=== PATIENT | female | born 1960 | race Caucasian/White ===

== ENCOUNTER 2017-10-19 12:56 | Emergency (ER) | payer OTHER ==
[~2017-10-19] VITALS: Ht 160 cm; Wt 70.3 kg
[~2017-10-19 12:56] MED LIST: ASPIRIN CHILDRE81 MG; CELECOXIB200 M1 PO; CITALOPRAM HYDR40 MG PO; DARVOCET N 1001 TAB PO; ETODOLAC400 MG PO; GABAPENTIN300 MG PO; GABAPENTIN800 MG PO; HYDROCODONE BIT1 T11 PO; KEFLEX500 MG PO; MOTRIN800 MG PO; NAPROSYN500 MG PO; NORCO 5-325 TA1 EACH PO; PREDNISONE10 MG PO; PRILOSEC20 MG PO; TRAMADOL HCL50 MG PO; VENTOLIN0.09 MG/AC INH; VICODIN 5/500 505 MG PO; VICODIN 500 MG-1 TAB PO; VISTARIL50 MG PO
[2017-10-19] MEDS ORDERED: NORCO 5-325 TA1 EACH PO (14:00)
[2017-10-19] MEDS ORDERED: KEFLEX500 M1 PO (14:00)
== END 2017-10-19 14:13 | disposition home or self-care (01) ==
LOC: ED 12:56
DX: S92.421A Displaced fracture of distal phalanx of right great toe, initial encounter for closed fracture (principal); R03.0 Elevated blood-pressure reading, without diagnosis of hypertension; Z98.890 Other specified postprocedural states; Z88.5 Allergy status to narcotic agent; Z79.899 Other long term (current) drug therapy; W20.8XXA Other cause of strike by thrown, projected or falling object, initial encounter; Y93.89 Activity, other specified; Y92.89 Other specified places as the place of occurrence of the external cause; Y99.9 Unspecified external cause status

== ENCOUNTER → 2020-01-26 | Outpatient (CLI) | payer OTHER ==
[~2020-01-26] MED LIST changes: +KEFLEX500 M1 PO
== END | disposition home or self-care (01) ==
LOC: MAMMO 10:48
DX: Z12.31 Encounter for screening mammogram for malignant neoplasm of breast (principal)

== ENCOUNTER → 2022-01-25 | Outpatient (CLI) | payer OTHER | END | disposition home or self-care (01) | LOC: RAD 16:47 | PROVIDERS: ATTEND Nurse Practitioner Family | DX: M47.816 Spondylosis without myelopathy or radiculopathy, lumbar region (principal); M48.061 Spinal stenosis, lumbar region without neurogenic claudication; M25.78 Osteophyte, vertebrae; M25.552 Pain in left hip ==

== ENCOUNTER 2023-02-01 10:11 | Emergency (ER) | payer OTHER ==
[~2023-02-01] VITALS: Ht 162.5 cm; Wt 57.6 kg
[~2023-02-01 10:11] MED LIST changes: +ALDACTONE25 MG PO; +ALLERGY RELIE15.8 ML NAS; +ALPRAZOLAM0.25 M2 PO; +ASPIRIN ADULT L81 M2 PO; +BENGAY T; +DULOXETINE HCL60 MG PO; +FLUTICASONE PROP 50; +FLUTICASONE-SAL12 GM INH; +IBU800 MG PO; +JARDIANCE10 MG PO; +KLOR-CON M2020 ME1 PO; +LISINOPRIL2.5 MG PO; +LOPRESSOR25 MG PO; +METOPROLOL SUCC25 M2 PO; +OMEPRAZOLE MAGN20 MG PO; +PROVENTIL HFA6.7 GM INH; +RINVOQ ER15 MG PO; +SYMB160 INH; +VITAMIN D3125 MCG PO; +XARE20MG PO; +ZITHROMAX TRI-500 M1 PO
== END 2023-02-01 11:17 | disposition home or self-care (01) ==
LOC: ED 10:11
DX: I48.92 Unspecified atrial flutter (principal); K21.9 Gastro-esophageal reflux disease without esophagitis; I11.0 Hypertensive heart disease with heart failure; I50.9 Heart failure, unspecified; E78.00 Pure hypercholesterolemia, unspecified; Z88.5 Allergy status to narcotic agent; Z98.890 Other specified postprocedural states; F17.210 Nicotine dependence, cigarettes, uncomplicated

== ENCOUNTER → 2023-03-15 | Outpatient (CLI) | payer OTHER | END | disposition home or self-care (01) | LOC: CT 03-08 09:00 | PROVIDERS: ATTEND Nurse Practitioner | DX: K57.30 Diverticulosis of large intestine without perforation or abscess without bleeding (principal); K76.0 Fatty (change of) liver, not elsewhere classified; K76.89 Other specified diseases of liver; J90 Pleural effusion, not elsewhere classified; I51.7 Cardiomegaly; R18.8 Other ascites ==

== ENCOUNTER → 2023-04-02 | Outpatient (CLI) | payer OTHER | LOC: WOUNDCARE 03-30 00:31 | PROVIDERS: ATTEND Nurse Practitioner Family | DX: S81.802A Unspecified open wound, left lower leg, initial encounter (principal); S81.801D Unspecified open wound, right lower leg, subsequent encounter; S81.812D Laceration without foreign body, left lower leg, subsequent encounter; I73.9 Peripheral vascular disease, unspecified; I10 Essential (primary) hypertension; D64.9 Anemia, unspecified; I48.91 Unspecified atrial fibrillation; H54.8 Legal blindness, as defined in USA; K70.31 Alcoholic cirrhosis of liver with ascites; K21.9 Gastro-esophageal reflux disease without esophagitis; F17.210 Nicotine dependence, cigarettes, uncomplicated; F32.A Depression, unspecified; F41.9 Anxiety disorder, unspecified; Z71.6 Tobacco abuse counseling; X58.XXXD Exposure to other specified factors, subsequent encounter; X58.XXXA Exposure to other specified factors, initial encounter; Y93.89 Activity, other specified; Y92.89 Other specified places as the place of occurrence of the external cause; Y99.8 Other external cause status ==

== ENCOUNTER → 2023-04-05 | Outpatient (CLI) | payer OTHER | END | disposition home or self-care (01) | LOC: US 12:55 | PROVIDERS: ATTEND Nurse Practitioner Family | DX: I73.9 Peripheral vascular disease, unspecified (principal); L97.922 Non-pressure chronic ulcer of unspecified part of left lower leg with fat layer exposed ==

== ENCOUNTER → 2023-04-09 | Outpatient (CLI) | payer OTHER ==
[~2023-04-09] MED LIST changes: +LASIX20 MG PO
== END | disposition home or self-care (01) ==
LOC: WOUNDCARE 04:18
PROVIDERS: ATTEND Nurse Practitioner Family
DX: S81.802D Unspecified open wound, left lower leg, subsequent encounter (principal); S81.801D Unspecified open wound, right lower leg, subsequent encounter; L97.822 Non-pressure chronic ulcer of other part of left lower leg with fat layer exposed; I73.9 Peripheral vascular disease, unspecified; I10 Essential (primary) hypertension; D64.9 Anemia, unspecified; K70.31 Alcoholic cirrhosis of liver with ascites; F32.A Depression, unspecified; F41.9 Anxiety disorder, unspecified; I48.91 Unspecified atrial fibrillation; K21.9 Gastro-esophageal reflux disease without esophagitis; H54.8 Legal blindness, as defined in USA; F17.210 Nicotine dependence, cigarettes, uncomplicated; Z71.6 Tobacco abuse counseling; X58.XXXD Exposure to other specified factors, subsequent encounter

== ENCOUNTER 2023-04-16 11:41 | Emergency (ER) | payer OTHER ==
[~2023-04-16] VITALS: Ht 162.5 cm; Wt 59.0 kg
[~2023-04-16 11:41] MED LIST changes: -LASIX20 MG PO
[2023-04-16 13:06] LABS: BASO % 0.2 % (0.0-1.0); EOS % 0.3 % (1.0-4.0); HEMATOCRIT 27.4 % (37.0-47.0); LYMPH # 0.8 10*3/uL (1.3-4.4); LYMPH % 6.2 % (27.0-41.0); MEAN CELL VOLUME 92.6 fl (81.0-99.0); MEAN CORPUSCULAR HGB CONC 30.3 g/dl (33.0-37.0); MEAN PLATELET VOLUME 9.2 fl (9.6-12.3); MONO # 0.9 10*3/uL (0.1-1.0); NEUT # 10.4 10*3/uL (2.3-7.9); NEUT % 85.8 % (47.0-73.0); NUCLEATED RED BLOOD CELL 0.2 % (0.0-0.0); PLATELET COUNT AUTOMATED 441 10*3/uL (130-400); RED BLOOD COUNT 2.96 10*6/uL (4.10-5.10); RED CELL DISTRI WIDTH 20.3 % (0-14.5); WHITE BLOOD COUNT 12.1 10*3/uL (4.8-10.8)
[2023-04-16 13:37] LABS: ALKALINE PHOSPHATASE 75 U/L (46-116); BUN 18 mg/dl (9-23); CHLORIDE 107 mmol/L (98-107); POTASSIUM 3.7 mmol/L (3.4-5.1); SGPT/ALT 12 U/L (5-49); TOTAL PROTEIN 6.8 gm/dL (6.0-8.0)
[2023-04-16] MEDS ORDERED: LASIX20 MG PO (13:46)
== END 2023-04-16 14:21 | disposition home or self-care (01) ==
LOC: ED 11:41
PROVIDERS: Physician Assistant Medical
DX: I50.9 Heart failure, unspecified (principal); I48.91 Unspecified atrial fibrillation; J44.9 Chronic obstructive pulmonary disease, unspecified; Z88.5 Allergy status to narcotic agent; Z98.890 Other specified postprocedural states; F17.210 Nicotine dependence, cigarettes, uncomplicated; F12.90 Cannabis use, unspecified, uncomplicated; F15.90 Other stimulant use, unspecified, uncomplicated

== ENCOUNTER → 2023-04-16 | Outpatient (CLI) | payer OTHER | END | disposition home or self-care (01) | LOC: WOUNDCARE 01:28 | PROVIDERS: ATTEND Nurse Practitioner Family | DX: S81.802D Unspecified open wound, left lower leg, subsequent encounter (principal); S81.801D Unspecified open wound, right lower leg, subsequent encounter; L97.822 Non-pressure chronic ulcer of other part of left lower leg with fat layer exposed; H54.8 Legal blindness, as defined in USA; I73.9 Peripheral vascular disease, unspecified; D64.9 Anemia, unspecified; I11.0 Hypertensive heart disease with heart failure; I50.9 Heart failure, unspecified; K70.31 Alcoholic cirrhosis of liver with ascites; K21.9 Gastro-esophageal reflux disease without esophagitis; I48.91 Unspecified atrial fibrillation; F41.9 Anxiety disorder, unspecified; F17.210 Nicotine dependence, cigarettes, uncomplicated; F32.A Depression, unspecified; Z71.6 Tobacco abuse counseling; X58.XXXD Exposure to other specified factors, subsequent encounter ==

== ENCOUNTER → 2023-04-25 | Outpatient (CLI) | payer OTHER ==
[~2023-04-25] MED LIST changes: +LASIX20 MG PO
== END | disposition home or self-care (01) ==
LOC: WOUNDCARE 01:15
PROVIDERS: ATTEND Nurse Practitioner Family
DX: S81.802D Unspecified open wound, left lower leg, subsequent encounter (principal); S81.801D Unspecified open wound, right lower leg, subsequent encounter; L97.822 Non-pressure chronic ulcer of other part of left lower leg with fat layer exposed; H54.8 Legal blindness, as defined in USA; I73.9 Peripheral vascular disease, unspecified; D64.9 Anemia, unspecified; I48.91 Unspecified atrial fibrillation; I11.0 Hypertensive heart disease with heart failure; I50.9 Heart failure, unspecified; K21.9 Gastro-esophageal reflux disease without esophagitis; K70.31 Alcoholic cirrhosis of liver with ascites; F32.A Depression, unspecified; F41.9 Anxiety disorder, unspecified; F17.210 Nicotine dependence, cigarettes, uncomplicated; Z71.6 Tobacco abuse counseling; X58.XXXD Exposure to other specified factors, subsequent encounter

== ENCOUNTER → 2023-04-30 | Outpatient (CLI) | payer OTHER | END | disposition home or self-care (01) | LOC: WOUNDCARE 02:02 | PROVIDERS: ATTEND Nurse Practitioner Family | DX: S81.802D Unspecified open wound, left lower leg, subsequent encounter (principal); S81.801D Unspecified open wound, right lower leg, subsequent encounter; L97.822 Non-pressure chronic ulcer of other part of left lower leg with fat layer exposed; H54.8 Legal blindness, as defined in USA; I73.9 Peripheral vascular disease, unspecified; D64.9 Anemia, unspecified; I11.0 Hypertensive heart disease with heart failure; I50.9 Heart failure, unspecified; I48.91 Unspecified atrial fibrillation; K21.9 Gastro-esophageal reflux disease without esophagitis; K70.31 Alcoholic cirrhosis of liver with ascites; F32.A Depression, unspecified; F41.9 Anxiety disorder, unspecified; F17.210 Nicotine dependence, cigarettes, uncomplicated; Z71.6 Tobacco abuse counseling; X58.XXXD Exposure to other specified factors, subsequent encounter ==

== ENCOUNTER → 2023-05-07 | Outpatient (CLI) | payer OTHER ==
[2023-05-07 08:13] LABS: BASO % 0.4 % (0.0-1.0); EOS # 0.1 10*3/uL (0.0-0.4); EOS % 1.4 % (1.0-4.0); HEMATOCRIT 24.9 % (37.0-47.0); LYMPH # 1.1 10*3/uL (1.3-4.4); LYMPH % 19.7 % (27.0-41.0); MEAN CELL VOLUME 90.2 fl (81.0-99.0); MEAN CORPUSCULAR HGB 27.2 pg (27.0-31.0); MEAN CORPUSCULAR HGB CONC 30.1 g/dl (33.0-37.0); MEAN PLATELET VOLUME 8.4 fl (9.6-12.3); MONO # 0.7 10*3/uL (0.1-1.0); MONO % 11.4 % (3.0-9.0); NEUT # 3.8 10*3/uL (2.3-7.9); NEUT % 66.7 % (47.0-73.0); PLATELET COUNT AUTOMATED 485 10*3/uL (130-400); RED BLOOD COUNT 2.76 10*6/uL (4.10-5.10); RED CELL DISTRI WIDTH 18.9 % (0-14.5); WHITE BLOOD COUNT 5.7 10*3/uL (4.8-10.8)
[2023-05-07 08:24] LABS: ACT PARTIAL THROMBO TIME 27.4 SECONDS (20.0-32.1)
[2023-05-07 08:42] LABS: POTASSIUM 3.7 mmol/L (3.4-5.1); TOTAL PROTEIN 6.7 gm/dL (6.0-8.0)
[2023-05-08 05:05] LABS: ALPHA-1-ANTITRYPSIN, SERUM 169 mg/dL (101-187)
[2023-05-08 06:06] LABS: HEPATITIS B SURFACE AB Non Reactive (.); HEPATITIS B SURFACE AG Negative (Negative)
[2023-05-08 14:06] LABS: ANTI-SMOOTH MUSCLE ANTIBODY 11 Units (0-19); t-TRANSGLUTAMINASE (tTG) IGA <2 U/mL (0-3); t-TRANSGLUTAMINASE (tTG) IgG <2 U/mL (0-5)
== END | disposition home or self-care (01) ==
LOC: LAB 00:26 → WOUNDCARE 00:26
PROVIDERS: Nurse Practitioner Family; ATTEND Nurse Practitioner Family
DX: S81.802D Unspecified open wound, left lower leg, subsequent encounter (principal); L97.822 Non-pressure chronic ulcer of other part of left lower leg with fat layer exposed; S81.801D Unspecified open wound, right lower leg, subsequent encounter; H54.8 Legal blindness, as defined in USA; I73.9 Peripheral vascular disease, unspecified; K70.31 Alcoholic cirrhosis of liver with ascites; D64.9 Anemia, unspecified; I48.91 Unspecified atrial fibrillation; I11.0 Hypertensive heart disease with heart failure; I50.9 Heart failure, unspecified; K21.9 Gastro-esophageal reflux disease without esophagitis; F41.9 Anxiety disorder, unspecified; F17.200 Nicotine dependence, unspecified, uncomplicated; F32.A Depression, unspecified; F17.210 Nicotine dependence, cigarettes, uncomplicated; Z71.6 Tobacco abuse counseling; X58.XXXD Exposure to other specified factors, subsequent encounter

== ENCOUNTER → 2023-05-21 | Outpatient (CLI) | payer OTHER | END | disposition home or self-care (01) | LOC: WOUNDCARE 02:04 | PROVIDERS: ATTEND Nurse Practitioner Family | DX: L97.822 Non-pressure chronic ulcer of other part of left lower leg with fat layer exposed (principal); S81.801D Unspecified open wound, right lower leg, subsequent encounter; H54.8 Legal blindness, as defined in USA; I73.9 Peripheral vascular disease, unspecified; I10 Essential (primary) hypertension; D64.9 Anemia, unspecified; I48.91 Unspecified atrial fibrillation; K70.31 Alcoholic cirrhosis of liver with ascites; K21.9 Gastro-esophageal reflux disease without esophagitis; F41.9 Anxiety disorder, unspecified; F32.A Depression, unspecified; F17.210 Nicotine dependence, cigarettes, uncomplicated; Z71.6 Tobacco abuse counseling; X58.XXXD Exposure to other specified factors, subsequent encounter ==

== ENCOUNTER → 2023-06-05 | Outpatient (CLI) | payer OTHER ==
[~2023-06-05] MED LIST changes: +Carafate1 GM PO; +ECOTRIN81 M1 PO; +POTASSIUM40 MEQ/15 PO; +VITAMIN D3125 MC1 PO; +ZYRTEC10 M2 PO
== END | disposition home or self-care (01) ==
LOC: WOUNDCARE 00:36
PROVIDERS: ATTEND Nurse Practitioner Family
DX: S81.802D Unspecified open wound, left lower leg, subsequent encounter (principal); S81.801D Unspecified open wound, right lower leg, subsequent encounter; L97.828 Non-pressure chronic ulcer of other part of left lower leg with other specified severity; H54.8 Legal blindness, as defined in USA; I73.9 Peripheral vascular disease, unspecified; D64.9 Anemia, unspecified; I11.0 Hypertensive heart disease with heart failure; I50.9 Heart failure, unspecified; I48.91 Unspecified atrial fibrillation; K70.31 Alcoholic cirrhosis of liver with ascites; K21.9 Gastro-esophageal reflux disease without esophagitis; F32.A Depression, unspecified; F41.9 Anxiety disorder, unspecified; F17.210 Nicotine dependence, cigarettes, uncomplicated; Z71.6 Tobacco abuse counseling; X58.XXXD Exposure to other specified factors, subsequent encounter

== ENCOUNTER → 2023-06-12 | Outpatient (CLI) | payer OTHER | END | disposition home or self-care (01) | LOC: WOUNDCARE 01:22 | PROVIDERS: ATTEND Nurse Practitioner Family | DX: S81.802D Unspecified open wound, left lower leg, subsequent encounter (principal); S81.801D Unspecified open wound, right lower leg, subsequent encounter; L97.822 Non-pressure chronic ulcer of other part of left lower leg with fat layer exposed; H54.8 Legal blindness, as defined in USA; I73.9 Peripheral vascular disease, unspecified; K70.31 Alcoholic cirrhosis of liver with ascites; I10 Essential (primary) hypertension; D64.9 Anemia, unspecified; I48.91 Unspecified atrial fibrillation; I11.0 Hypertensive heart disease with heart failure; I50.9 Heart failure, unspecified; K21.9 Gastro-esophageal reflux disease without esophagitis; F32.A Depression, unspecified; F41.9 Anxiety disorder, unspecified; F17.210 Nicotine dependence, cigarettes, uncomplicated; Z71.6 Tobacco abuse counseling; X58.XXXD Exposure to other specified factors, subsequent encounter ==

== ENCOUNTER 2023-07-24 15:37 | Emergency (ER) | payer OTHER ==
[~2023-07-24] VITALS: Ht 162.5 cm; Wt 56.2 kg
[2023-07-24 16:32] LABS: BILIRUBIN Negative (Negative); BLOOD Trace-Intact (Negative); CLARITY Clear (Clear); COLOR Yellow (Yellow); GLUCOSE 1+ (Negative); KETONE Negative (Negative); LEUKO ESTERASE Negative (Negative); NITRITE Negative (Negative); PH 5.5 (4.5-8.0); SPECIFIC GRAVITY 1.015 (1.001-1.030)
[2023-07-24 16:49] LABS: EPITHELIAL CELLS 16-20; FINE GRANULAR CAST 0-2; MUCOUS 1+; WBC 0-2 wbc/hpf (0-5)
[2023-07-24 16:58] LABS: URINE AMPHETAMINES Positive (1000ng/ml); URINE BARBITURATES Negative (200ng/ml); URINE BENZODIAZEPINES Negative (200ng/ml); URINE CANNABINOIDS (THC) Negative (50ng/ml); URINE COCAINE Negative (300ng/ml); URINE METHADONE Negative (300ng/ml); URINE OPIATES Negative (300ng/ml); URINE PHENCYCLIDINE Negative (25ng/ml)
[2023-07-24 17:01] LABS: BASO % 0.2 % (0.0-1.0); EOS # 0.2 10*3/uL (0.0-0.4); EOS % 1.2 % (1.0-4.0); HEMATOCRIT 25.7 % (37.0-47.0); LYMPH % 6.8 % (27.0-41.0); MEAN CELL VOLUME 85.1 fl (81.0-99.0); MEAN CORPUSCULAR HGB 24.2 pg (27.0-31.0); MEAN CORPUSCULAR HGB CONC 28.4 g/dl (33.0-37.0); MEAN PLATELET VOLUME 8.4 fl (9.6-12.3); MONO # 0.8 10*3/uL (0.1-1.0); MONO % 5.8 % (3.0-9.0); NEUT % 85.6 % (47.0-73.0); PLATELET COUNT AUTOMATED 581 10*3/uL (130-400); RED BLOOD COUNT 3.02 10*6/uL (4.10-5.10); RED CELL DISTRI WIDTH 20.1 % (0-14.5)
[2023-07-24 17:14] LABS: ACT PARTIAL THROMBO TIME 26.9 SECONDS (20.0-32.1)
[2023-07-24 17:26] LABS: ALKALINE PHOSPHATASE 96 U/L (46-116); BUN 39 mg/dl (9-23); CHLORIDE 105 mmol/L (98-107); ETHYL ALCOHOL < 3.0 mg/dl (<3); LIPASE 58 U/L (12-53); POTASSIUM 3.5 mmol/L (3.4-5.1); SGPT/ALT 33 U/L (5-49); TOTAL PROTEIN 8.1 gm/dL (6.0-8.0)
== END 2023-07-24 21:45 | disposition home or self-care (01) ==
LOC: ED 15:37
PROVIDERS: Family Medicine
DX: E87.8 Other disorders of electrolyte and fluid balance, not elsewhere classified (principal); D72.829 Elevated white blood cell count, unspecified; D64.9 Anemia, unspecified; N17.9 Acute kidney failure, unspecified; F15.90 Other stimulant use, unspecified, uncomplicated; I50.9 Heart failure, unspecified; I48.91 Unspecified atrial fibrillation; F17.210 Nicotine dependence, cigarettes, uncomplicated; Z88.5 Allergy status to narcotic agent; Z98.890 Other specified postprocedural states; Z79.899 Other long term (current) drug therapy

== ENCOUNTER 2023-09-06 08:25 | Emergency (ER) | payer OTHER ==
[2023-09-06] VITALS (16 sets, daily range): BP systolic 86–152; BP diastolic 54–94
[~2023-09-06] VITALS: Ht 162.5 cm; Wt 51.4 kg
[2023-09-06] MEDS ORDERED: Albuterol Sulf/Ipratropium 3 ML VIAL NEB ONE ×2 (08:45→18:30)
[2023-09-06] MEDS ORDERED: methylPREDNISolone sod succ 125 MG VIAL IV ONE (08:50)
[2023-09-06 09:01] LABS: MEAN CELL VOLUME 94.3 fl (81.0-99.0); MEAN CORPUSCULAR HGB 25.9 pg (27.0-31.0); MEAN CORPUSCULAR HGB CONC 27.5 g/dl (33.0-37.0); MEAN PLATELET VOLUME 9.9 fl (9.6-12.3); NUCLEATED RED BLOOD CELL 0.1 10*3/uL (0.0-0.0); NUCLEATED RED BLOOD CELL 0.6 % (0.0-0.0); PLATELET COUNT AUTOMATED 577 10*3/uL (130-400); RED BLOOD COUNT 1.58 10*6/uL (4.10-5.10); WHITE BLOOD COUNT 14.1 10*3/uL (4.8-10.8)
[2023-09-06 09:02] LABS: MANUAL DIFF REFLEX YES
[2023-09-06 09:03] LABS: HEMATOCRIT 14.9 % (37.0-47.0)
[2023-09-06] MEDS ORDERED: FUROSEMIDE 20 MG/2 ML VIAL IV SCH (09:05)
[2023-09-06 09:10] LABS: ACT PARTIAL THROMBO TIME 34.7 SECONDS (20.0-32.1)
[2023-09-06 09:22] LABS: OVALOCYTES FEW; PLATELET SUFFICIENCY HIGH (NORMAL); POLYCHROMASIA SLIGHT; STOMATOCYTE FEW; TOTAL CELLS COUNTED 100 #CELLS
[2023-09-06] MEDS ORDERED: SODIUM CHLORIDE 0.9% 1,000 ML IV SCH (09:25)
[2023-09-06 09:29] LABS: POTASSIUM 2.6 mmol/L (3.4-5.1); TOTAL PROTEIN 7.4 gm/dL (6.0-8.0)
[2023-09-06] MEDS ORDERED: Piperacillin Sodium/Tazobact 50 ML IV ONE (09:30)
[2023-09-06] MEDS ORDERED: Vancomycin Hydrochloride 250 ML IV ONE (09:30)
[2023-09-06] MEDS ORDERED: ACETAMINOPHEN 325 MG TAB PO ONE (10:40)
[2023-09-06] MEDS ORDERED: SODIUM CHLORIDE 0.9% 500 ML IV ONE ×2 (10:42→17:09)
[2023-09-06 13:30] LABS: BILIRUBIN Negative (Negative); BLOOD Negative (Negative); CLARITY Cloudy (Clear); COLOR Yellow (Yellow); GLUCOSE Negative (Negative); KETONE Negative (Negative); LEUKO ESTERASE Negative (Negative); NITRITE Negative (Negative); PH 5.5 (4.5-8.0); SPECIFIC GRAVITY 1.015 (1.001-1.030)
[2023-09-06 13:35] LABS: URINE AMPHETAMINES Negative (1000ng/ml); URINE BARBITURATES Negative (200ng/ml); URINE BENZODIAZEPINES Negative (200ng/ml); URINE CANNABINOIDS (THC) Negative (50ng/ml); URINE COCAINE Negative (300ng/ml); URINE METHADONE Negative (300ng/ml); URINE OPIATES Negative (300ng/ml); URINE PHENCYCLIDINE Negative (25ng/ml)
[2023-09-06 13:38] LABS: EPITHELIAL CELLS TNTC
[2023-09-06] MEDS ORDERED: POTASSIUM CHLORIDE 20 MEQ TAB PO ONE (15:15)
[2023-09-06 15:43] LABS: HEMATOCRIT 22.5 % (37.0-47.0); MEAN CORPUSCULAR HGB 26.7 pg (27.0-31.0); MEAN CORPUSCULAR HGB CONC 30.2 g/dl (33.0-37.0); NUCLEATED RED BLOOD CELL 0.1 10*3/uL (0.0-0.0); NUCLEATED RED BLOOD CELL 0.6 % (0.0-0.0); PLATELET COUNT AUTOMATED 507 10*3/uL (130-400); RED BLOOD COUNT 2.55 10*6/uL (4.10-5.10); RED CELL DISTRI WIDTH 24.3 % (0-14.5); WHITE BLOOD COUNT 13.9 10*3/uL (4.8-10.8)
[2023-09-06 15:45] LABS: MANUAL DIFF REFLEX YES; MEAN CELL VOLUME 88.2 fl (81.0-99.0)
[2023-09-06] MEDS ORDERED: POTASSIUM CHLORIDE IN WATER 100 ML IV SCH (16:00)
[2023-09-06 16:03] LABS: TOTAL CELLS COUNTED 100 #CELLS
[2023-09-06 16:04] LABS: PLATELET SUFFICIENCY HIGH (NORMAL); POLYCHROMASIA SLIGHT
== END 2023-09-06 22:47 | disposition short-term general hospital (02) ==
LOC: ED 08:25
PROVIDERS: Internal Medicine
DX: I21.4 Non-ST elevation (NSTEMI) myocardial infarction (principal); Z20.822 Contact with and (suspected) exposure to COVID-19; R65.20 Severe sepsis without septic shock; N17.9 Acute kidney failure, unspecified; D64.9 Anemia, unspecified; E87.6 Hypokalemia; I50.9 Heart failure, unspecified; J44.9 Chronic obstructive pulmonary disease, unspecified; I48.91 Unspecified atrial fibrillation; Z88.5 Allergy status to narcotic agent; Z98.890 Other specified postprocedural states; F17.210 Nicotine dependence, cigarettes, uncomplicated; Z79.899 Other long term (current) drug therapy

== ENCOUNTER → 2023-09-25 | Outpatient (CLI) | payer OTHER ==
[2023-09-25 07:51] LABS: BASO # 0.1 10*3/uL (0.0-0.1); BASO % 1.1 % (0.0-1.0); EOS # 0.1 10*3/uL (0.0-0.4); EOS % 1.7 % (1.0-4.0); HEMATOCRIT 39.5 % (37.0-47.0); LYMPH # 1.1 10*3/uL (1.3-4.4); MEAN CORPUSCULAR HGB 29.5 pg (27.0-31.0); MEAN CORPUSCULAR HGB CONC 30.1 g/dl (33.0-37.0); MEAN PLATELET VOLUME 8.5 fl (9.6-12.3); MONO # 0.7 10*3/uL (0.1-1.0); MONO % 9.6 % (3.0-9.0); NEUT % 71.3 % (47.0-73.0); PLATELET COUNT AUTOMATED 508 10*3/uL (130-400); RED BLOOD COUNT 4.03 10*6/uL (4.10-5.10); RED CELL DISTRI WIDTH 23.9 % (0-14.5)
== END | disposition home or self-care (01) ==
LOC: LAB 07:25
PROVIDERS: ATTEND Internal Medicine
DX: I50.9 Heart failure, unspecified (principal)

== ENCOUNTER → 2024-07-25 | Outpatient (CLI) | payer OTHER ==
[2024-07-25 11:55] LABS: BASO % 0.2 % (0.0-1.0); EOS # 0.1 10*3/uL (0.0-0.4); EOS % 1.2 % (1.0-4.0); HEMATOCRIT 28.7 % (37.0-47.0); MEAN CELL VOLUME 99.3 fl (81.0-99.0); MEAN CORPUSCULAR HGB 29.4 pg (27.0-31.0); MEAN CORPUSCULAR HGB CONC 29.6 g/dl (33.0-37.0); MEAN PLATELET VOLUME 8.1 fl (9.6-12.3); MONO # 0.9 10*3/uL (0.1-1.0); MONO % 10.6 % (3.0-9.0); NEUT # 6.4 10*3/uL (2.3-7.9); NEUT % 74.6 % (47.0-73.0); PLATELET COUNT AUTOMATED 551 10*3/uL (130-400); RED BLOOD COUNT 2.89 10*6/uL (4.10-5.10); RED CELL DISTRI WIDTH 14.7 % (0-14.5); WHITE BLOOD COUNT 8.6 10*3/uL (4.8-10.8)
[2024-07-25 12:29] LABS: ALKALINE PHOSPHATASE 81 U/L (46-116); BUN 22 mg/dl (9-23); CHLORIDE 99 mmol/L (98-107); CHOLESTEROL 146 mg/dL (<200); LDL CHOLESTEROL 73 mg/dL (9-159); POTASSIUM 4.1 mmol/L (3.4-5.1); TOTAL PROTEIN 7.9 gm/dL (6.0-8.0); TRIGLYCERIDES 89 mg/dl (<150)
[2024-07-25 12:44] LABS: SGPT/ALT < 7 U/L (5-49)
== END | disposition home or self-care (01) ==
LOC: LAB 11:38
PROVIDERS: ATTEND Nurse Practitioner
DX: E55.9 Vitamin D deficiency, unspecified (principal); I21.4 Non-ST elevation (NSTEMI) myocardial infarction; I10 Essential (primary) hypertension

== ENCOUNTER → 2024-09-16 | Outpatient (CLI) | payer OTHER ==
[2024-09-16 07:47] LABS: BASO % 0.1 % (0.0-1.0); EOS # 0.1 10*3/uL (0.0-0.4); EOS % 0.7 % (1.0-4.0); HEMATOCRIT 33.2 % (37.0-47.0); MEAN CELL VOLUME 93.5 fl (81.0-99.0); MEAN CORPUSCULAR HGB 27.6 pg (27.0-31.0); MEAN CORPUSCULAR HGB CONC 29.5 g/dl (33.0-37.0); MEAN PLATELET VOLUME 8.1 fl (9.6-12.3); MONO % 7.2 % (3.0-9.0); NEUT # 9.6 10*3/uL (2.3-7.9); NEUT % 71.7 % (47.0-73.0); PLATELET COUNT AUTOMATED 443 10*3/uL (130-400); RED BLOOD COUNT 3.55 10*6/uL (4.10-5.10); RED CELL DISTRI WIDTH 15.9 % (0-14.5); WHITE BLOOD COUNT 13.4 10*3/uL (4.8-10.8)
== END | disposition home or self-care (01) ==
LOC: LAB 00:48
PROVIDERS: ATTEND Nurse Practitioner
DX: D64.9 Anemia, unspecified (principal)

== ENCOUNTER → 2025-02-09 | Outpatient (CLI) | payer OTHER ==
[~2025-02-09] MED LIST changes: +ATORVASTATIN CA40 M1 PO; +DIOVAN40 MG PO; +FUROSEMIDE40 MG PO; +GABAPENTIN600 MG PO; +METOPROLOL SUCC50 M1 PO; +TIZANIDINE2 MG PO; +TOPROL XL50 M1 PO; +VALSARTAN40 MG PO
[2025-02-09 16:04] LABS: MEAN CELL VOLUME 91.4 fl (81.0-99.0); MEAN CORPUSCULAR HGB 25.9 pg (27.0-31.0); MEAN PLATELET VOLUME 8.8 fl (9.6-12.3); NUCLEATED RED BLOOD CELL 0.3 10*3/uL (0.0-0.0); NUCLEATED RED BLOOD CELL 3.6 % (0.0-0.0); PLATELET COUNT AUTOMATED 383 10*3/uL (130-400); RED CELL DISTRI WIDTH 15.9 % (0-14.5)
[2025-02-09 16:13] LABS: MANUAL DIFF REFLEX YES
[2025-02-09 16:33] LABS: PLATELET SUFFICIENCY NORMAL (NORMAL)
== END | disposition home or self-care (01) ==
LOC: LAB 15:39
PROVIDERS: ATTEND Nurse Practitioner
DX: R89.9 Unspecified abnormal finding in specimens from other organs, systems and tissues (principal)